=== PATIENT | male | born 1965 | race Caucasian/White ===

== ENCOUNTER 2017-08-30 12:15 | Emergency (ER) | payer BC, OTHER ==
[2017-08-30] MEDS ORDERED: HYDROCODONE/ACETAMINOPHEN 5-325 MG TABLET PO ONE (12:24)
[2017-08-30] MEDS ORDERED: DIPH/PERTUSS(ACELL)/TETANUS VAC/PF 0.5 ML SYR (>=10YO) IM ONE (12:33)
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
[2017-08-30 13:31] VITALS: BP 114/77
== END 2017-08-30 13:30 | disposition home or self-care (01) ==
LOC: ER 12:15
DX: S40.211A Abrasion of right shoulder, initial encounter (principal); V86.59XA Driver of other special all-terrain or other off-road motor vehicle injured in nontraffic accident, initial encounter; I25.10 Atherosclerotic heart disease of native coronary artery without angina pectoris; Z95.1 Presence of aortocoronary bypass graft; Z23 Encounter for immunization
CPT/HCPCS: 90471; 90715; 99283

== ENCOUNTER 2019-01-17 12:14 | Emergency (ER) | payer SELFPAY ==
[2019-01-17] MEDS ORDERED: DIPH/PERTUSS(ACELL)/TETANUS VAC/PF 0.5 ML SYR (>=10YO) IM ONE (13:17)
[2019-01-17] MEDS ORDERED: ACETAMINOPHEN 325 MG TABLET PO ONE (13:17)
[2019-01-17] MEDS ORDERED: IBUPROFEN 600 MG TABLET PO ONE (13:17)
[2019-01-17] MEDS ORDERED: LIDOCAINE 1% INJ-PF (10 MG/ML) 30 ML SDV INJ ONE (13:18)
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
[2019-01-17] MEDS ORDERED: HYDROCODONE/ACETAMINOPHEN 5-325 MG (6 TAB/ER DISP) PO PRN (14:44)
[2019-01-17 15:09] VITALS: BP 136/93
== END 2019-01-17 15:09 | disposition home or self-care (01) ==
LOC: ER 12:14
DX: S60.00XA Contusion of unspecified finger without damage to nail, initial encounter (principal); T14.8XXA Other injury of unspecified body region, initial encounter; S61.317A Laceration without foreign body of left little finger with damage to nail, initial encounter; W20.8XXA Other cause of strike by thrown, projected or falling object, initial encounter; I25.10 Atherosclerotic heart disease of native coronary artery without angina pectoris; Z95.5 Presence of coronary angioplasty implant and graft
CPT/HCPCS: 90471; 90715; 99283